=== PATIENT | female | born 1950 | race Caucasian/White ===

== ENCOUNTER 2017-04-28 14:28 | Emergency (ER) | payer OTHER ==
[~2017-04-28] VITALS: Ht 152.4 cm; Wt 52.2 kg
[2017-04-28 14:50] VITALS: BP 98/58
--- NOTE | 2017-04-28 14:57 | NUR ---
PT AMBULATE TO RESTROOM. URINE CUP AND WIPE PROVIDED FOR SAMPLE.
--- NOTE | 2017-04-28 14:57 | NUR ---
UPPER AND LOWER BACK PAIN, AND MID CHEST PAIN ON INSPIRATION
[2017-04-28] MEDS ORDERED: ASPIRIN 325 MG TAB PO ONE (15:05)
--- NOTE | 2017-04-28 15:06 | NUR ---
Patient to OF.
--- NOTE | 2017-04-28 15:11 | NUR ---
LAB at chair side drawing blood.
[2017-04-28 15:22] LABS: BASOPHILS # (AUTO) 0.2 K/uL (0.00-0.22); BASOPHILS % (AUTO) 3.6 % (0.0-2.0); EOSINOPHILS # (AUTO) 0.3 K/uL (0-0.4); EOSINOPHILS % (AUTO) 4.2 % (0.0-4.0); HEMATOCRIT 35.6 % (36-48); HEMOGLOBIN 11.9 g/dL (12.0-16.0); LYMPHOCYTES # (AUTO) 1.8 K/uL (2.5-16.5); LYMPHOCYTES % (AUTO) 29.9 % (20.5-51.1); MEAN CORPUSCULAR HEMOGLOBIN 30 pg (27-31); MEAN CORPUSCULAR HGB CONC 34 g/dL (33-37); MEAN CORPUSCULAR VOLUME 88 fL (80-94); MONOCYTES # (AUTO) 0.5 K/uL (0.8-1.0); MONOCYTES % (AUTO) 7.8 % (1.7-9.3); NEUTROPHILS # (AUTO) 3.3 K/uL (1.8-7.7); NEUTROPHILS % (AUTO) 54.5 % (42.2-75.2); PLATELET COUNT (AUTO) 268 K/uL (140-450); RED BLOOD CELL COUNT(AUTO) 4.02 MIL/uL (4.20-5.40); RED CELL DISTRIBUTION WIDTH 12.2 % (11.6-13.7); WHITE BLOOD COUNT (AUTO) 6.1 K/uL (4.8-10.8)
--- NOTE | 2017-04-28 15:25 | NUR ---
Patient back from XRAY via wheelchair per tech.
[2017-04-28 15:33] LABS: ANION GAP 12.7 (8-16); CALCIUM 9.3 mg/dL (8.5-10.1); CARBON DIOXIDE 27.3 mmol/L (21-32); CREATININE 0.6 mg/dL (0.6-1.3)
[2017-04-28 15:39] LABS: ALBUMIN 3.7 g/dL (3.4-5.0); TOTAL BILIRUBIN 0.2 mg/dL (0.0-1.0); TOTAL PROTEIN, SERUM 7.5 g/dL (6.4-8.2)
--- NOTE | 2017-04-28 15:40 | NUR ---
Patient ambulated to bed 06.
--- NOTE | 2017-04-28 15:42 | NUR ---
66/F C/O UPPER AND LOWER BACK PAIN, AND MID CHEST PAIN ON INSPIRATION X3DAYS. HX L BREAST CANCER AND PARTIAL THYROIDECTOMY. DENIES N/V/D; SKIN IS PINK/WARM/DRY; AAOX4 WITH EVEN AND STEADY GAIT; LUNGS CLEAR BL; HR EVEN AND REGULAR; PT DENIES ANY FEVER, SOB, OR COUGH AT THIS TIME; PATIENT STATES PAIN OF 9/10 AT THIS TIME; VSS; PATIENT POSITIONED FOR COMFORT; HOB ELEVATED; BEDRAILS UP X2; BED DOWN. ER MD MADE AWARE OF PT STATUS.
[2017-04-28 15:43] LABS: PROTHROMBIN TIME 10.4 secs (10.8-13.4)
[2017-04-28] MEDS ORDERED: NACL 0.9% 500 ML IV ONE (15:45)
--- NOTE | 2017-04-28 15:55 | NUR ---
Patient appears to be resting comfortably in bed. Vital Signs within normal limits. Respirations even and unlabored.WILL CONTINUE TO MONITOR
[2017-04-28] MEDS ORDERED: METHOCARBAMOL 500 MG TAB PO ONE (16:10)
[2017-04-28] MEDS ORDERED: IBUPROFEN 800 MG TAB PO ONE (17:50)
--- NOTE | 2017-04-28 17:50 | NUR ---
PT C/O CHEST PAIN 06/23. ER MD DR ADAM NOTIFIED. IBPROFEN 800MG PO ORDERED.
--- NOTE | 2017-04-28 18:00 | NUR ---
LAB AT BEDSIDE.
--- NOTE | 2017-04-28 19:01 | NUR ---
GAVE MED IBUPROFEN PO FOR PAIN .
--- NOTE | 2017-04-28 19:02 | NUR ---
Patient discharged with v/s stable. Written and verbal after care instructions given and explained. Patient alert, oriented and verbalized understanding of instructions. Ambulatory with steady gait. All questions addressed prior to discharge. ID band removed. Patient advised to follow up with PMD. Rx of ROBAXIN & MOTRIN given. Patient educated on indication of medication including possible reaction and side effects. Opportunity to ask questions provided and answered.
[2017-04-28 19:03] VITALS: BP 121/61
== END 2017-04-28 19:02 | disposition home or self-care (01) ==
LOC: MED 14:28
DX: R07.81 Pleurodynia (principal); M54.6 Pain in thoracic spine; Z85.3 Personal history of malignant neoplasm of breast
CPT/HCPCS: 36415; 71010; 80053; 81002; 81025; 83880; 84484; 85025; 85379; 85610; 85730; 93005; 99285; J7030